=== PATIENT | male | born 1985 | race Two or more races ===

== ENCOUNTER 2021-12-13 19:57 | Emergency (ER) | payer SELFPAY ==
--- NOTE | 2021-12-13 21:05 | NUR ---
CALLED TO TRIAGE NO ANSWER
--- NOTE | 2021-12-13 21:21 | NUR ---
PATIENT NOT IN WAITING ROOM
== END 2021-12-13 21:40 | disposition left against medical advice (07) ==
LOC: ER 20:00
DX: Z53.21 Procedure and treatment not carried out due to patient leaving prior to being seen by health care provider (principal)